=== PATIENT | male | born 1975 | race Caucasian/White ===

== ENCOUNTER 2016-11-17 08:46 | Emergency (ER) | payer OTHER ==
[~2016-11-17] VITALS: Ht 182.9 cm; Wt 88.5 kg
[~2016-11-17 08:46] MED LIST: ALBUTEROL SULFAT3 M1 INH; ALBUTEROL0.09 MG/A1 INH; ATORVASTATIN CA10 MG PO; AZITHROMYCIN500 MG PO; CITALOPRAM HBR40 MG PO; FENOFIBRATE54 M1 PO; PREDNISONE10 MG PO; SIMVASTATIN40 M1 PO; TRICOR 48MG48 MG PO
[2016-11-17 08:59] VITALS: BP 108/73
--- NOTE | 2016-11-17 09:02 | ED ANKLE/FOOT INJURY COMPLAINT ---
History of Present Illness General Chief Complaint: Foot or Ankle Injury Stated Complaint: "I DID SOMETHING TO MY FOOT" RIGHT FOOT Source: patient, old records Exam Limitations: no limitations Vital Signs & Intake/Output Vital Signs & Intake/Output Vital Signs Date Time Temp Pulse Resp B/P Pulse O2 O2 Flow FiO2 Ox Delivery Rate 11/17 0859 97.6 62 20 108/73 98 Room Air Room Air Allergies Coded Allergies: NO KNOWN ALLERGIES (03/02/11) Reconcile Medications Citalopram Hydrobromide (Citalopram HBr) 40 MG TABLET 1 TAB PO DAILY DEPRESSION (Reported) Fenofibrate 54 MG TABLET 1 TAB PO DAILY CHOLESTEROL (Reported) Indomethacin 50 MG CAPSULE 1 CAP PO TID PRN pain gout with food Oxycodone HCl/Acetaminophen (Percocet 5-325 MG Tablet) 5 MG-325 MG TABLET 1 TAB PO BID PRN breakthrough pain Simvastatin (Simvastatin*) 40 MG TABLET 1 TAB PO QPM CHOLESTEROL (Reported) Triage Note: PT TO ED WITH C/O RIGHT FOOT PAIN, DENIES FALL OR INJURY TO THE AREA "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 Triage Nurses Notes Reviewed? yes Occurred: last week Duration: week(s): (1), constant, waxing and waning Timing: recent history Severity: moderate Severity Numbers: 6 Pain/Injury Location: Right: 1st toe. Method of Injury: unknown Modifying Factors: Worsens With: other (palpation). Associated Symptoms: redness HPI: This is a 41-year-old male with no medical history presents to emergency room complaining of atraumatic right first metacarpal pain and redness for the past 1 week. He denies any known specific injury or trauma. He denies any swelling or radiation of pain constant and aching waxing and waning however in intensity. There is no other foot ankle knee pain no fever no chills. He has not taken anything for his symptoms. He states the pain is even present at rest throbbing in nature. No history of gout a numbness tingling or difficulty with range of motion of his toes. Past History Travel History Traveled to [place] past 21 day No Medical History Any Pertinent Medical History? 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 . Hx Contributory? No Review of Systems Review of Systems Constitutional: Reports: see HPI. All Other Systems: Reviewed and Negative Comments Review of systems: See HPI, All other systems negative. Constitutional, no chills no fever, no malaise HEENT: no sore throat no congestion, no ear pain Cardiovascular: No chest pain , no palpitation Skin, no rashes, no change in skin Respiratory: No dyspnea no cough no sputum GI: No nausea no vomiting, no diarrhea : No dysuria Muscle skeletal: joint pain, no joint swelling, no back pain, no neck pain, Neurologic: No numbness, no headache Psych: No stress Heme/endocrine: No bruising no bleeding Immunology: No lymphadenopathy, Physical Exam Physical Exam General Appearance: well developed/nourished, no apparent distress, alert, awake Leg/Knee/Thigh Left: normal range of motion, normal inspection Comments: Well-developed well-nourished patient in no apparent distress. HEENT: Atraumatic, extraocular motion intact Neck: Supple, FROM, Back: FROM Cardiovascular: Regular rate and rhythms no murmurs Respiratory: No respiratory distress. Patient speaking in full complete sentences. Breath sounds clear to auscultation bilaterally: NO W/R/R Upper Extremities: full range of motion Hip/Pelvis: Atraumatic/Stable. FROM. No pain with pelvic compression Knee: Atraumatic/stable. FROM. No joint swelling, no effusion. No laxity. No pain with ROM Leg: Atraumatic. Nontender. No edema, 5 out of 5 strength in the lower extremity, normal dorsiflexion of great toe bilaterally, gross sensation is intact Ankle/Foot: (+) mild erythema and localized tenderness over the 1st MTP joint, no streaking up the leg noted. the rest of the foot is atraumatic, nontender, Skin intact. FROM. No swelling, no effusion. No laxity on exam Pulses: Normal/equal DP/PT pulses bilaterally. Brisk cap refill Neuro: Alert and oriented x3 Skin: Warm & dry;No appreciable rash on exposed skin Psych: Mood affect normal, normal memory normal judgment. Progress Differential Diagnosis: cellulitis, gout, fracture, dislocation, sprain, contusion Plan of Care: Orders Procedure Date/time Status XRY-FOOT COMPLETE, RIGHT 11/17 902 Active xray ordered. d/w the pt his xray results need for supportive care, close f/u w pmd. rx for indocin and percocet provided. advised rest, ice as needed. return with any concerns. he feels comfortable with plan (KOBE SHAH,DAVID) Diagnostic Imaging: Viewed by Me: Radiology Read. Discussed w/RAD: Radiology Read. Radiology Impression: PATIENT: TOMI SCHULTE PRESENT AGE: 41 PATIENT ACCOUNT NO: [id number] : 75 LOCATION: [facility] ORDERING PHYSICIAN: DAVID SHAH SERVICE DATE: 11/17/16 EXAM TYPE: RAD - XRY-FOOT COMPLETE, R EXAMINATION: XR FOOT, RIGHT CLINICAL INFORMATION: Redness and pain first metatarsal bone. No history of trauma. COMPARISON: None TECHNIQUE: 3 views of the right foot performed. FINDINGS: The alignment is normal. Mild to moderate degenerative changes are seen at the first metatarsal phalangeal joint with marginal osteophytes at the first metatarsal head and the lateral margin of the proximal phalanx. A corticated density is seen lateral to the first MTP joint. There is mild soft tissue swelling. The phalanges are otherwise normal in appearance. In the midfoot, there is a lucency through the medial aspect of the navicular bone. This could reflect overlap, fracture or accessory navicular. IMPRESSION: 1. Mild to moderate degenerative changes at the first metatarsal-phalangeal joint. 2. Lucency through the medial aspect of the navicular bone. If the patient is symptomatic in this region, an external oblique view of the foot is recommended for further assessment. DICTATED BY: AURELIA GAINES MD DATE/TIME DICTATED:11/17/16932 LICENSED CERTIFIED ORTHOTIST:JOE DATE/TIME TRANSCRIBED:11/17/16932 CONFIDENTIAL, DO NOT COPY WITHOUT APPROPRIATE AUTHORIZATION. <Electronically signed in Other Vendor System> SIGNED BY: AURELIA GAINES MD 11/17/16 0941 Departure Departure Disposition: HOME OR SELF CARE Condition: Stable Clinical Impression Primary Impression: Gout Referrals: SARA BARROSO,CALE Hodges Additional Instructions: Indocin as directed, percocet for breaktrhough pain if needed- use caution as this is a narcotic-highly addictive and will make you drowsy- no driving or drinking alcohol while taking. follow up with your pmd this week. return with any concerns: worsening pain, redness, fever, chills. Departure Forms: Customer Survey General Discharge Information Prescriptions: Current Visit Scripts Indomethacin 1 CAP PO TID PRN pain gout #30 CAP with food Oxycodone HCl/Acetaminophen (Percocet 5-325 MG Tablet) 1 TAB PO BID PRN breakthrough pain #10 TAB
[2016-11-17] MEDS ORDERED: INDOMETHACIN50 M1 PO (09:13)
[2016-11-17] MEDS ORDERED: PERCOCET 5-3251 EACH PO (09:13)
--- NOTE | 2016-11-17 09:41 | RADIOLOGY REPORT ---
EXAMINATION: XR FOOT, RIGHT CLINICAL INFORMATION: Redness and pain first metatarsal bone. No history of trauma. COMPARISON: None TECHNIQUE: 3 views of the right foot performed. FINDINGS: The alignment is normal. Mild to moderate degenerative changes are seen at the first metatarsal phalangeal joint with marginal osteophytes at the first metatarsal head and the lateral margin of the proximal phalanx. A corticated density is seen lateral to the first MTP joint. There is mild soft tissue swelling. The phalanges are otherwise normal in appearance. In the midfoot, there is a lucency through the medial aspect of the navicular bone. This could reflect overlap, fracture or accessory navicular. IMPRESSION: 1. Mild to moderate degenerative changes at the first metatarsal-phalangeal joint. 2. Lucency through the medial aspect of the navicular bone. If the patient is symptomatic in this region, an external oblique view of the foot is recommended for further assessment.
[2016-11-18] MEDS ORDERED: PERCOCET 5-3251 EACH PO (04:46)
== END 2016-11-17 09:40 ==
LOC: ERH 08:46
DX: M1A.9XX0 Chronic gout, unspecified, without tophus (tophi) (principal)
CPT/HCPCS: 73630-RT

== ENCOUNTER 2016-11-18 03:32 | Emergency (ER) | payer OTHER ==
[~2016-11-18] VITALS: Ht 182.9 cm; Wt 88.5 kg
[~2016-11-18 03:32] MED LIST changes: +INDOMETHACIN50 M1 PO; +PERCOCET 5-3251 EACH PO
--- NOTE | 2016-11-18 04:23 | ED ANKLE/FOOT INJURY COMPLAINT ---
History of Present Illness General Chief Complaint: Foot or Ankle Injury Stated Complaint: RIGHT FOOT PAIN, WAS HERE YESTERDAY Source: patient, old records Exam Limitations: no limitations Vital Signs & Intake/Output Vital Signs & Intake/Output Vital Signs Date Time Temp Pulse Resp B/P Pulse O2 O2 Flow FiO2 Ox Delivery Rate 11/18 0507 97.1 58 18 147/79 98 Room Air 11/18 0351 97.0 56 18 154/83 97 Room Air Allergies Coded Allergies: NO KNOWN ALLERGIES (03/02/11) Reconcile Medications Citalopram Hydrobromide (Citalopram HBr) 40 MG TABLET 1 TAB PO DAILY DEPRESSION (Reported) Fenofibrate 54 MG TABLET 1 TAB PO DAILY CHOLESTEROL (Reported) Indomethacin 50 MG CAPSULE 1 CAP PO TID PRN pain gout with food Oxycodone HCl/Acetaminophen (Percocet 5-325 MG Tablet) 5 MG-325 MG TABLET 1 TAB PO Q4-6 PRN PAIN Oxycodone HCl/Acetaminophen (Percocet 5-325 MG Tablet) 5 MG-325 MG TABLET 1 TAB PO BID PRN breakthrough pain Simvastatin (Simvastatin*) 40 MG TABLET 1 TAB PO QPM CHOLESTEROL (Reported) Triage Note: PT TO TRIAGE C/O FOOT PAIN. PT STATES HE WAS HERE 11/17 FOR SAME THING. PT STATES THEY TOLD HIM IT WAS GOUT, HE GOT SCRIPTS FOR ANTI-INFLAMMATYORY AND PAIN MEDICINE. PT STATES HE TOOK MEDICINE TODAY BUT NOTHING WOULD HELP THE PAIN. PT ALSO STATES THE PAIN WENT FROM ONE SIDE OF THE FOOT TO THE OTHER. Triage Nurses Notes Reviewed? yes Duration: day(s): (FEW) Timing: recent history Severity: severe Pain/Injury Location: Right: 1st toe. Method of Injury: NONE Modifying Factors: Worsens With: other (TOUCH, MOVEMENT). HPI: 41 year old male diagnosed with gout yesterday morning returns to the ER for worsening pain. He states he took the antiinflammatory pill and the percocet with minimal relief. No trauma. He wanted to make sure nothing else was wrong. He had an xray done yesterday as well. Past History Travel History Traveled to [place] past 21 day No Medical History Any Pertinent Medical History? 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 . Hx Contributory? No Review of Systems Review of Systems Constitutional: Denies: chills, fever. EENTM: Reports: no symptoms. Respiratory: Reports: no symptoms. Cardiovascular: Reports: no symptoms. GI: Reports: no symptoms. Genitourinary: Reports: no symptoms. Musculoskeletal: Reports: joint pain, joint swelling. Skin: Reports: erythema. Neurological/Psychological: Reports: anxiety. Hematologic/Endocrine: Denies: bruising, bleeding. Immunologic/Allergic: Reports: no symptoms. All Other Systems: Reviewed and Negative Physical Exam Physical Exam General Appearance: well developed/nourished, alert, awake, anxious, mild distress Head: atraumatic Eyes: Bilateral: PERRL, EOMI. Ears, Nose, Throat: normal pharynx, normal ENT inspection, hearing grossly normal Neck: normal inspection, supple Cardiovascular/Respiratory: regular rate/rhythm Back: normal inspection Leg/Knee/Thigh Left: normal range of motion, normal inspection Leg/Knee/Thigh Right: normal range of motion, normal inspection Ankle Left: normal inspection, normal range of motion Ankle Right: normal inspection, normal range of motion Foot Left: normal inspection, normal range of motion Foot Right: erythema, pain, soft tissue tenderness, swelling Neuro/Vascular: normal motor function Tendon: normal tendon function Psychiatric: awake, alert, oriented x 3 Skin: intact, normal color, warm/dry Diagram Feet Top: 1) erythema, soft tissue swelling and tenderness Progress Differential Diagnosis: cellulitis, gout Plan of Care: Current Medications Sig/Senia Start time Last Medication Dose Stop Time Status Admin Morphine Sulfate 6 MG ONCE ONE 11/180 CAN (Morphine) 11/18 0431 indocin admininistered. Patient with erythema and soft tissue tenderness around 1st metatarsal joint. Examination consistent with gout. (MARIO BARROSO,EVARISTO) Departure Departure Time of Disposition: 443 Disposition: HOME OR SELF CARE Condition: Stable Clinical Impression Primary Impression: Gout attack Referrals: PATIENT HAS NO PRIMARY CARE DR (PCP/Family) Additional Instructions: Continue your indomethacin and Percocet as directed. Rest and elevate the foot as much as possible. Follow-up to primary care doctor in the office. Return to the emergency department should there be any worsening redness of the foot, fever or chills. Departure Forms: Customer Survey General Discharge Information Prescriptions: Current Visit Scripts Oxycodone HCl/Acetaminophen (Percocet 5-325 MG Tablet) 1 TAB PO Q4-6 PRN PAIN #10 TAB
[2016-11-18] MEDS ORDERED: PERCOCET 5-3251 EACH PO (04:46)
[2016-11-18 05:07] VITALS: BP 147/79
== END 2016-11-18 05:08 ==
LOC: ERH 03:32
DX: M10.9 Gout, unspecified (principal)